=== PATIENT | female | born 1980 | race Caucasian/White ===

== ENCOUNTER 2022-03-20 10:31 | Emergency (ER) | payer OTHER, SELFPAY ==
[2022-03-20 10:52] VITALS: BP 141/79; PULSE 70; RESP 16; TEMP 37.1; O2SAT 100
--- NOTE | 2022-03-20 11:34 | ED.URI ---
HPI - URI/Sore Throat General Chief Complaint: Upper Respiratory Infection Stated Complaint: Cough,Sinus Source: patient Mode of arrival: ambulatory Limitations: no limitations History of Present Illness HPI Narrative: 41-year-old female presents to [facility] with complaints of cough, sinus pressure, nasal congestion and runny nose for the past 10 days. Patient reports that she takes Zyrtec daily. Patient also has been taking [id number] Sudafed, Mucinex and Delsym with minimal relief. Patient reports that her children recently have been ill with cold-like symptoms. Patient denies recent travel. Patient denies shortness of breath, wheezing, nausea, vomiting or diarrhea. MD elicited complaint: cough, nasal congestion and sinus pain Onset (ago): day(s) (10) Consistency: constant Description of mucous: clear Able to tolerate fluids by mouth: Yes Treatments prior to arrival: cold medicine Related Data Allergies Allergy/AdvReac Type Severity Reaction Status Date / Time No Known Allergies Allergy Verified 03/20/22 11:26 Review of Systems Constitutional: Constitutional: Denies chills, Denies fatigue, Denies fever(s) and Denies weakness ENT: Denies vertigo, Denies dizziness and Reports nasal congestion Comments: Sinus pressure, runny nose Respiratory: Respiratory: Reports cough, Denies dyspnea and Denies wheezing Gastrointestinal: Gastrointestinal: Denies diarrhea, Denies nausea and Denies vomiting Integumentary/Breasts: Skin/Breast: Denies rash Neurologic: Denies dizziness PMFSH Past Medical History Medical History (Updated 03/20/22 @ 11:44 by Nayely Funes APRN) Hernia Tonsillectomy planned Social History Social History (Updated 03/20/22 @ 11:42 by Nayely Funes APRN) Smoking status: Never smoker Comments At time of signature, I agree with nursing past medical, surgical, social and family history. There is no relevant family history pertinent to the presenting complaint. Exam Const: General: healthy appearing and no acute distress Nutritional Appearance: well nourished Orientation/consciousness: patient oriented x3 Limitations: no limitations HENMT: Face/Nose/Sinus: Normal external nose present and Nasal discharge present clear bilateral (Mild bilateral nasal congestion noted) Face and sinus: sinus tenderness frontal Mouth: Yes Normal oral and palatal mucosa present and Yes moist mucous membranes Throat: posterior oropharynx normal and uvula midline Neck: Neck: normal visual inspection Resp: Effort & Inspection: normal respiratory effort and not labored Auscultation: clear to auscultation bilaterally, no crackles, no rales, no rhonchi and no wheezes Cardio: Rate: regular rate Rhythm: regular rhythm Heart sounds: no murmurs Skin: General skin exam: normal color Rashes: no rashes Wounds: no wounds Neuro: General: patient oriented x3 Cranial nerves: Yes Nystagmus not present Speech: normal speech Gait exam (Neuro): Normal gait present Psych: Mental Status: mental status grossly normal Affect: normal affect Attitude: cooperative Course Course Level of Care: Express Care Visit Vital Signs Vital signs: Vital Signs Temperature 37.1 C 03/20/22 10:52 Pulse Rate 70 03/20/22 10:52 Respiratory Rate 16 03/20/22 10:52 Blood Pressure 141/79 H 03/20/22 10:52 Pulse Oximetry 100 03/20/22 10:52 Oxygen Delivery Room Air 03/20/22 10:52 Temperature 37.1 C 03/20/22 10:52 Pulse Rate 70 03/20/22 10:52 Respiratory Rate 16 03/20/22 10:52 Blood Pressure 141/79 H 03/20/22 10:52 Pulse Oximetry 100 03/20/22 10:52 Oxygen Delivery Room Air 03/20/22 10:52 MDM - URI/Sore Throat Differential Diagnosis Differential diagnosis: Likely otitis media, viral infection and bronchitis Lab Data Labs: Negative rapid COVID Critical Care Time Critical Care Time Critical Care Time: No Discharge Plan Discharge Clinical Impression: Sinusitis Patient
== END 2022-03-20 11:48 | disposition home or self-care (01) ==
PROVIDERS: Emergency Provider Nurse Practitioner Family
DX: J32.9 Chronic sinusitis, unspecified (principal); Z20.822 Contact with and (suspected) exposure to COVID-19; Z86.16 Personal history of COVID-19
CPT/HCPCS: 87426; 99203; C9803; G0463

== ENCOUNTER 2023-02-21 08:23 | Emergency (ER) | payer OTHER, SELFPAY ==
[2023-02-21 08:47] VITALS: BP 133/86; PULSE 77; RESP 16; TEMP 36.6; O2SAT 100
--- NOTE | 2023-02-21 09:17 | ED.URI ---
HPI - URI/Sore Throat General Chief Complaint: Upper Respiratory Infection Stated Complaint: bodyaches,sorethroat,cough Time Seen by Provider: 02/21/23 09:14 Source: patient and RN notes reviewed Mode of arrival: ambulatory Limitations: no limitations History of Present Illness HPI Narrative: 42-year-old female presenting for complaint of headache, sinus congestion, scratchy throat, and ?heavy chest? with a cough that feels like it should be productive for a few days. Started with body aches last night. Endorses family has had similar symptoms. Taking Leonor and Flonase for symptoms. Denies sob, wheezing, n/v/d/f/c. MD elicited complaint: cough Related Data Home Medications Medication Instructions Recorded Confirmed No Home Medications 02/21/23 02/21/23 Allergies Allergy/AdvReac Type Severity Reaction Status Date / Time No Known Allergies Allergy Verified 02/21/23 08:39 Review of Systems Review of Systems: CONSTITUTIONAL: Denies malaise, chills, sweats, fever EYES: Denies visual changes, redness, or discharge ENT: Reports rhinorrhea, congestion, denies sinus pain, otalgia, sore throat CARDIOVASCULAR: Denies chest pain, palpitations, edema RESPIRATORY: Reports cough, post nasal drainage. Denies dyspnea GASTROINTESTINAL: Denies abdominal pain, nausea, vomiting, diarrhea SKIN: Denies rash or itching MUSCULOSKELETAL: Endorses myalgia NEUROLOGIC: Reports headache PMFSH Past Medical History Medical History Hernia Tonsillectomy planned Social History Social History Smoking status: Never smoker Exam Narrative: GENERAL: well-appearing EYES: PERRLA, conjunctivae clear ENT: Mucous membranes moist. TMs pearly canales with dull light reflex bilaterally; no tragal tenderness. Oropharynx mildly erythematous without lesions or exudate, no drooling, no hoarseness, no trismus, uvula midline. No tripod positioning, muffled voice, soft palate or pharyngeal wall bulging NECK: Supple. No lymphadenopathy CHEST: Clear to auscultation, breath sounds equal. No wheezing, rhonchi, rales, or stridor. No respiratory distress, speaks in full sentences. HEART: Regular rate and rhythm. No murmur heard. SKIN: Warm, dry, no rash. NEURO: Alert and oriented x3. PSYCH: Normal mood and affect Course Course Emergency Course: Patient is aware of diagnosis, understands and agrees to treatment plan. Anticipatory guidance given. Patient agrees to follow-up as directed and is aware of reasons to seek care at the emergency department. Portions of this record may have been created with voice recognition software Level of Care: Express Care Visit Vital Signs Vital signs: Vital Signs Temperature 97.9 F 02/21/23 08:47 Pulse Rate 77 02/21/23 08:47 Respiratory Rate 16 02/21/23 08:47 Blood Pressure 133/86 02/21/23 08:47 Pulse Oximetry 100 02/21/23 08:47 Oxygen Delivery Room Air 02/21/23 08:47 Temperature 97.9 F 02/21/23 08:47 Pulse Rate 77 02/21/23 08:47 Respiratory Rate 16 02/21/23 08:47 Blood Pressure 133/86 02/21/23 08:47 Pulse Oximetry 100 02/21/23 08:47 Oxygen Delivery Room Air 02/21/23 08:47 reviewed MDM - URI/Sore Throat MDM Narrative Medical decision making narrative: Results are negative COVID, flu, and strep test reviewed with patient. Discussed physical exam findings. Advised supportive measures and signs/symptoms to go to the ER. Pt is appropriate for outpt treatment and f/u. Differential Diagnosis Differential diagnosis: Likely upper respiratory infection, sinusitis, viral infection, bronchitis, influenza and pharyngitis Lab Data Labs: Influenza A Screen Negative Reference Range: Negative Influenza B Screen Negative Reference Range: Negati
== END 2023-02-21 09:27 | disposition home or self-care (01) ==
PROVIDERS: Emergency Provider Nurse Practitioner Family
DX: B34.9 Viral infection, unspecified (principal); Z20.822 Contact with and (suspected) exposure to COVID-19
CPT/HCPCS: 87081; 87426; 87804; 87880; 99213; C9803; G0463

== ENCOUNTER 2024-03-26 09:42 | Emergency (ER) | payer OTHER, SELFPAY ==
[2024-03-26 09:50] VITALS: BP 136/82; PULSE 68; RESP 16; TEMP 36.4; O2SAT 100
[2024-03-26 09:56] VITALS: BP 136/82; PULSE 68; RESP 16; TEMP 36.4; O2SAT 100
--- NOTE | 2024-03-26 10:03 | ED.URI ---
HPI - URI/Sore Throat General Chief Complaint: Upper Respiratory Infection Stated Complaint: RT Ear Pain / congestion Time Seen by Provider: 03/26/24 10:03 Source: patient and RN notes reviewed Mode of arrival: ambulatory Limitations: no limitations History of Present Illness HPI Narrative: 43-year-old female presents with concern for one-month history of sinus congestion, drainage. She began having ear pain for the past week. She reports it is worse on the right. Reports she has been taking Leonor and Sudafed without relief. She denies fever MD elicited complaint: nasal congestion Related Data Allergies Allergy/AdvReac Type Severity Reaction Status Date / Time No Known Allergies Allergy Verified 02/21/23 08:39 Review of Systems Review of Systems: CONSTITUTIONAL: Denies malaise, chills, sweats, or fever. EYES: Denies visual changes, redness, or discharge. ENT: Reports rhinorrhea, congestion, sinus pain, otalgia CARDIOVASCULAR: Denies chest pain, palpitations, or edema. RESPIRATORY: Denies cough. Denies dyspnea. GASTROINTESTINAL: Denies abdominal pain, nausea, vomiting, diarrhea SKIN: Denies rash or itching. MUSCULOSKELETAL: Denies myalgia. NEUROLOGIC: Denies headache. All systems reviewed & are unremarkable except as noted in HPI and below PMFSH Past Medical History Medical History Hernia Tonsillectomy planned Social History Social History Smoking status: Never smoker Comments At time of signature, agree with nursing past medical, surgical, social and family history. There is no relevant family history pertinent to the presenting complaint Exam Narrative: GENERAL: Well-appearing, well-nourished, and in no acute distress. HEAD: Normocephalic EYES: PERRLA, conjunctivae clear ENT: Nares clear, turbinates edematous and erythematous. Mucous membranes moist. TM pearly canales with dull light reflex bilaterally; no tragal tenderness. Oropharynx not erythematous without lesions. Tonsils not enlarged and without exudate, no drooling, no hoarseness, no trismus, uvula midline. NECK: Supple. No lymphadenopathy CHEST: Clear to auscultation, breath sounds equal. No wheezing, rhonchi, rales, or stridor. No respiratory distress, speaks in full sentences. HEART: Regular rate and rhythm. No murmur heard. SKIN: Warm, dry, no rash. NEURO: Alert and oriented x3. PSYCH: Normal mood and affect Course Course Emergency Course: Patient is aware of diagnosis, understands and agrees to treatment plan. Anticipatory guidance given. Patient agrees to follow-up as directed and is aware of reasons to seek care at the emergency department. Portions of this record may have been created with voice recognition software Level of Care: Express Care Visit Vital Signs Vital signs: Vital Signs Temperature 97.6 F 03/26/24 09:50 Pulse Rate 68 03/26/24 09:50 Respiratory Rate 16 03/26/24 09:50 Blood Pressure 136/82 03/26/24 09:50 Pulse Oximetry 100 03/26/24 09:50 Oxygen Delivery Room Air 03/26/24 09:50 Temperature 97.6 F 03/26/24 09:56 Pulse Rate 68 03/26/24 09:56 Respiratory Rate 16 03/26/24 09:56 Blood Pressure 136/82 03/26/24 09:56 Pulse Oximetry 100 03/26/24 09:56 Oxygen Delivery Room Air 03/26/24 09:56 Reviewed. MDM - URI/Sore Throat MDM Narrative Medical decision making narrative: Differential diagnosis considered: Zimmerman virus, strep pharyngitis, allergic rhinitis, upper respiratory tract infection, sinusitis, rhinosinusitis, nasopharyngitis. viral pharyngitis, otitis media, otitis externa, pneumonia, bronchitis, viral cough syndrome, viral syndrome, and influenza. Exam findings show no acute concerns or changes; patient is non-toxic appearing and is in no distress. Patient is appropriate for outpatient treatment and follow-up. Lab Data Attestation: I reviewed the patien
== END 2024-03-26 10:20 | disposition home or self-care (01) ==
PROVIDERS: Emergency Provider Nurse Practitioner
DX: J01.90 Acute sinusitis, unspecified (principal)
CPT/HCPCS: 99213; G0463